=== PATIENT | female | born 1995 | race Caucasian/White ===

== ENCOUNTER 2019-02-12 13:07 | Emergency (ER) | payer OTHER ==
[~2019-02-12] VITALS: Ht 160 cm; Wt 63.5 kg
[2019-02-12 13:31] VITALS: BP 97/59
--- NOTE | 2019-02-12 13:40 | NUR ---
PT TAKEN TO ER BED 8 VIA WHEELCHAIR
--- NOTE | 2019-02-12 13:55 | NUR ---
BIB BOYFRIEND. AAO X4 PT C/O SWELLING AND 9/10 PAIN TO LEFT FOOT. PT STATES SHE JUMPED OFF FROM A WALL ABOUT 4-5 FEET YESTERDAY AT 1545. +SWELLING, NO DISCOLORATION, NO DEFORMITY, +CMS TO LEFT FOOT. PT UNABLE TO AMBULATE. ER TO EVALUATE PT.
--- NOTE | 2019-02-12 15:07 | NUR ---
DR GARCIA AT BEDSIDE FOR PT EVAL
[2019-02-12] MEDS ORDERED: HYDROcodone/APAP 5/325 MG 1 TAB TAB PO ONE (15:15)
[2019-02-12] MEDS ORDERED: IBUPROFEN 800 MG TAB PO ONE (15:15)
--- NOTE | 2019-02-12 15:29 | NUR ---
MEDICATIONS GIVEN ORDERED. PT TOLERATED WELL.
--- NOTE | 2019-02-12 15:55 | NUR ---
NO ADVERSE REACTION NOTED TO MEDICATIONS
[2019-02-12 15:58] VITALS: BP 102/62
--- NOTE | 2019-02-12 15:58 | NUR ---
Patient discharged with v/s stable. Written and verbal after care instructions given and explained. Patient alert, oriented and verbalized understanding of instructions. Ambulatory using crutches with steady gait. All questions addressed prior to discharge. ID band removed. Patient advised to follow up with PMD. Rx of [place] 5-325 mg, Ibuprofen given. Patient educated on indication of medication including possible reaction and side effects. Opportunity to ask questions provided and answered.
--- NOTE | 2019-02-12 16:03 | NUR ---
4 inch orthoglass used to apply posterior short leg splint to patients left lower leg. Patient was supplied with crutches, they were adjusted to fit height. PMSC's assessed and within normal limits
== END 2019-02-12 15:58 | disposition home or self-care (01) ==
LOC: MED 13:07
DX: S92.315A Nondisplaced fracture of first metatarsal bone, left foot, initial encounter for closed fracture (principal); W17.89XA Other fall from one level to another, initial encounter; Y93.39 Activity, other involving climbing, rappelling and jumping off; Y92.89 Other specified places as the place of occurrence of the external cause; Y99.8 Other external cause status
CPT/HCPCS: 29515; 73610; 73630; 81025; 99283; Q0092

== ENCOUNTER 2019-04-29 10:44 | Emergency (ER) | payer OTHER ==
[~2019-04-29] VITALS: Ht 162.6 cm; Wt 64.4 kg
[2019-04-29 10:49] VITALS: BP 113/44
--- NOTE | 2019-04-29 10:52 | NUR ---
PT TO BED 12 WUITH STEADY GAIT
--- NOTE | 2019-04-29 10:54 | NUR ---
PT USING RESTROOM AT THIS TIME
--- NOTE | 2019-04-29 10:56 | NUR ---
C/O LOWER PELVIC PAIN, LOWER BACK PAIN, AND DYSURIA X 3 DAYS. +NAUSEA. LAST BM WEDNESDAY, NORMAL. DENIES DIARRHEA OR VOMITING AT THIS TIME. PAIN 02/15. VSS. AA0X4. BED IS DOWN, LOCKED, BED RAIL X 1, ERMD TO SEE PT. PMH- DENIES RX-DENIES
--- NOTE | 2019-04-29 11:08 | NUR ---
DR ROLAND AT BEDSIDE
--- NOTE | 2019-04-29 11:32 | NUR ---
LABS DRAWN BEDSIDE AND WALKED TO LAB
--- NOTE | 2019-04-29 11:45 | NUR ---
Adriana grimes in [facility] - 04/29/19 at 1147 by [email or web address] DECREASED DYSKINESIA, PT RESTING SUPING ; NO S/S RESP DISTRESS WILL CONTINUE TO OBSERVE FOR CONTINUED INVOLUNTARY MUSCLE MOVEMENTS
[2019-04-29 11:46] LABS: BASOPHILS % (AUTO) 0.3 % (0.0-2.0); EOSINOPHILS % (AUTO) 0.4 % (0.0-4.0); HEMATOCRIT 46.7 % (36-48); HEMOGLOBIN 15.7 g/dL (12.0-16.0); LYMPHOCYTES # (AUTO) 1.7 K/uL (2.5-16.5); LYMPHOCYTES % (AUTO) 16.7 % (20.5-51.1); MEAN CORPUSCULAR HEMOGLOBIN 30 pg (27-31); MEAN CORPUSCULAR HGB CONC 34 g/dL (33-37); MEAN CORPUSCULAR VOLUME 88.1 fL (80-94); MONOCYTES # (AUTO) 0.3 K/uL (0.8-1.0); MONOCYTES % (AUTO) 3.3 % (1.7-9.3); NEUTROPHILS # (AUTO) 7.9 K/uL (1.8-7.7); NEUTROPHILS % (AUTO) 79.3 % (42.2-75.2); PLATELET COUNT (AUTO) 227 K/uL (140-450); RED CELL DISTRIBUTION WIDTH 12.8 % (11.6-13.7); WHITE BLOOD COUNT (AUTO) 9.9 K/uL (4.8-10.8)
[2019-04-29 11:57] LABS: ALBUMIN 3.7 g/dL (3.4-5.0); ANION GAP 10.8 (8-16); CARBON DIOXIDE 25.2 mmol/L (21-32); CREATININE 0.7 mg/dL (0.6-1.3); TOTAL BILIRUBIN 0.6 mg/dL (0.0-1.0)
--- NOTE | 2019-04-29 12:46 | NUR ---
Patient appears to be resting in bed. Vital Signs within normal limits. Respirations even and unlabored.
--- NOTE | 2019-04-29 14:00 | NUR ---
RR EVEN AND UNLABORED. NO SIGNS OF DISTRESS. PT RESTING IN BED COMFORTABLY
--- NOTE | 2019-04-29 14:18 | NUR ---
IV INSERTED BY CHRIS MILNER FOR CT WITH CONTRAST
--- NOTE | 2019-04-29 15:00 | NUR ---
RR EVEN AND UNLABORED. NO SIGNS OF DISTRESS. PT RESTING IN BED COMFORTABLY
[2019-04-29 16:10] VITALS: BP 118/73
--- NOTE | 2019-04-29 16:10 | NUR ---
Patient discharged with v/s stable. Written and verbal after care instructions given and explained. Patient alert, oriented and verbalized understanding of instructions. Ambulatory with steady gait. All questions addressed prior to discharge. ID band removed. Patient advised to follow up with PCP IN 2-3 DAYS. Rx of BACTRIM, TYLENOL AND MOTRIN given. Patient educated on indication of medication including possible reaction and side effects. Opportunity to ask questions provided and answered.
== END 2019-04-29 16:10 | disposition home or self-care (01) ==
LOC: MED 10:44
DX: N30.90 Cystitis, unspecified without hematuria (principal); N83.202 Unspecified ovarian cyst, left side; N83.201 Unspecified ovarian cyst, right side
CPT/HCPCS: 36415; 74177; 76856; 80053; 81002; 81025; 85025; 99284; Q0092; Q9967

== ENCOUNTER 2019-08-30 13:17 | Emergency (ER) | payer OTHER ==
[~2019-08-30] VITALS: Ht 162.6 cm; Wt 63.5 kg
[2019-08-30 13:37] VITALS: BP 104/65
--- NOTE | 2019-08-30 13:38 | NUR ---
TRIAGE COMPLETE. VSS. RETURNED TO LOBBY TO WAIT FOR BED IN ED.
--- NOTE | 2019-08-30 14:38 | NUR ---
PATIENT AMBULATED TO CHAIR-C
--- NOTE | 2019-08-30 14:45 | NUR ---
23/F PRESENTS SELF TO ED, C/O SORE THROAT, SUBJECTIVE FEVER AND CHILLS, BODYACHES, HEADACHE, X2 DAYS. DENIES COUGH OR CONGESTION. PT AWAKE AND ALERT, SKIN NORMAL COLOR WARM AND DRY, RR EVEN AND UNLABORED. DENIES MED HX OR RX. OTC TYLENOL WITHOUT RELIEF.
[2019-08-30 15:39] VITALS: BP 113/68
--- NOTE | 2019-08-30 15:39 | NUR ---
Patient discharged with v/s stable. Written and verbal after care instructions given and explained. Patient alert, oriented and verbalized understanding of instructions. Ambulatory with steady gait. All questions addressed prior to discharge. ID band removed. Patient advised to follow up with PMD. Rx of PROMETHAZINE, TAMIFLU, IBUPROFEN given. Patient educated on indication of medication including possible reaction and side effects. Opportunity to ask questions provided and answered.
== END 2019-08-30 15:39 | disposition home or self-care (01) ==
LOC: MED 13:17
DX: B34.9 Viral infection, unspecified (principal); J02.9 Acute pharyngitis, unspecified; R53.81 Other malaise
CPT/HCPCS: 99283

== ENCOUNTER 2022-08-23 20:21 | Emergency (ER) | payer MEDICAID, OTHER ==
[~2022-08-23] VITALS: Ht 160 cm; Wt 67.6 kg
[2022-08-23 20:25] VITALS: BP 116/82
--- NOTE | 2022-08-23 20:28 | NUR ---
to lobby a/w bed ambulatory
[2022-08-23 20:30] VITALS: BP 116/82
--- NOTE | 2022-08-23 21:30 | NUR ---
WRIST SPLINT APPLIED TO L HAND AND TOLERATED.
--- NOTE | 2022-08-23 21:50 | NUR ---
Patient discharged with v/s stable. Written and verbal after care instructions given and explained. Patient verbalized understanding. Ambulatory with steady gait. All questions addressed prior to discharge. Advised to follow up with PMD.
== END 2022-08-23 21:50 | disposition home or self-care (01) ==
LOC: MED 20:21
DX: S63.502A Unspecified sprain of left wrist, initial encounter (principal); X58.XXXA Exposure to other specified factors, initial encounter; Y93.89 Activity, other specified; Y92.89 Other specified places as the place of occurrence of the external cause; Y99.8 Other external cause status
CPT/HCPCS: 73130; 99283